=== PATIENT | female | born 1995 | race Two or more races ===

== ENCOUNTER 2017-10-06 23:03 | Emergency (ER) | payer BC ==
[~2017-10-06] VITALS: Ht 157.5 cm; Wt 81.6 kg
[~2017-10-06 23:03] MED LIST: PREN-129 OR
[2017-10-06 23:08] VITALS: BP 135/75
[2017-10-07] MEDS ORDERED: KETOROLAC TROMETH 60MG/2ML VIAL IM ONE (01:15)
[2017-10-07] MEDS ORDERED: SILVER SULFADIAZINE 1 % TOPICAL CREAM 50GM TOP ONE (01:45)
== END 2017-10-07 02:17 | disposition home or self-care (01) ==
LOC: ER 23:05
DX: T25.121A Burn of first degree of right foot, initial encounter (principal); X12.XXXA Contact with other hot fluids, initial encounter; Y93.89 Activity, other specified; Y99.8 Other external cause status; Y92.89 Other specified places as the place of occurrence of the external cause
CPT/HCPCS: 96372; 99283; J1885

== ENCOUNTER 2018-02-19 19:15 | Emergency (ER) | payer BC, OTHER ==
[~2018-02-19] VITALS: Ht 157.5 cm; Wt 86.2 kg
[2018-02-19 19:41] VITALS: BP 118/89
[2018-02-19] MEDS ORDERED: cefTRIAXone SOD 1,000 MG VL IM ONE (22:45)
== END 2018-02-20 01:20 | disposition home or self-care (01) ==
LOC: ER 19:15
DX: S61.412A Laceration without foreign body of left hand, initial encounter (principal); W26.0XXA Contact with knife, initial encounter; Y93.89 Activity, other specified; Y99.8 Other external cause status; Y92.89 Other specified places as the place of occurrence of the external cause
CPT/HCPCS: 12001; 96372; 99283; J0696; J7030

== ENCOUNTER 2023-09-14 19:35 | Observation (INO) | payer BC, OTHER | END 2023-09-14 22:14 | disposition home or self-care (01) | LOC: LDRP 19:35 | PROVIDERS: ADMIT Obstetrics & Gynecology; ATTEND Obstetrics & Gynecology | DX: O36.8130 Decreased fetal movements, third trimester, not applicable or unspecified (principal); Z3A.28 28 weeks gestation of pregnancy | CPT/HCPCS: 59025; 76815; 81002; 94760; G0378 ==